=== PATIENT | female | born 1935 | race Caucasian/White ===

== ENCOUNTER 2017-01-08 17:00 | Day surgery (SDC) | payer MEDICARE, OTHER ==
[2017-01-02 09:43] LABS: HEMATOCRIT 39.8 % (36.0-48.0); HEMOGLOBIN 13.2 g/dL (12.0-16.0)
--- NOTE | ~2017-01-08 | OP ---
Record Of Operation [facility] [address] [place]. [address] NAME: LOREN HUITRON : 33 STATUS : REG [facility] PAT#: [id number] AGE: 81 ADM/REG DATE : 01/08/17 MR#: [id number] REPORT SERV DATE: 01/10/17 DICTATED BY: Kathryn LYMAN DATE: 01/10/17 REPORT STATUS : Draft TRANSCRIBED BY: ALECIA DATE: 01/10/17 DATE OF PROCEDURE: 01/08/2017 PREOPERATIVE DIAGNOSES: 1. Basal cell carcinoma of the right inferior nasal sidewall. 2. Basal cell carcinoma of the right lower medial eyelid. 3. Lesion of the right medial forehead, uncertain behavior, rule out atypia. 4. Lesion of the right lateral brow, uncertain behavior, rule out atypia. POSTOPERATIVE DIAGNOSES: 1. Basal cell carcinoma of the right inferior nasal sidewall. 2. Basal cell carcinoma of the right lower medial eyelid. 3. Lesion of the right medial forehead, uncertain behavior, rule out atypia. 4. Lesion of the right lateral brow, uncertain behavior, rule out atypia. PROCEDURE: 1. Excision of right lower and medial eyelid basal cell carcinoma with frozen section. 2. Harvesting of full-thickness skin graft from right lateral upper eyelid. 3. Full-thickness skin graft reconstruction of right lower eyelid defect. 4. Excision of right inferior nasal sidewall basal cell carcinoma with frozen section, and dressing of the wound. 5. Shave excisional biopsy of the right medial forehead lesion. 6. Shaved excisional biopsy of right lateral brow lesion. FINDINGS: Right lower medial eyelid 1.2 cm wide x 6 cm tall excision required, located 14 mm from the lash line; margins cleared by frozen section; right inferior nasal sidewall 1.3 cm wide x 7 mm tall resection, with frozen section showing basal cell carcinoma with margins free; right medial forehead lesion measured 7 mm x 4 mm, slightly raised and rough and crusted; right lateral brow lesion measured 7 mm x 2 mm, rough and raised. INDICATIONS: This 81-year-old female, who has had previous skin cancers on her face, and has a biopsy-proven basal cell carcinoma of both the right lower medial eyelid, and right inferior nasal side wall. We now plan excision and reconstruction of the right lower eyelid with a full-thickness skin graft, and possibly allowing the right inferior nasal sidewall to heal by secondary intention, since she has multiple other scars on her nose and has tight skin on her nose, and a little tissue for flap reconstruction. She also has lesions of her right medial forehead and right lateral brow which have been rough and irritated, and she says they feel just like the other ones before they were diagnosed as cancer. She wants these biopsied and I agree. The pros and cons, alternatives, benefits, risks, limitations, and complications were discussed, including, but not limited to, problems with scarring, ectropion, need for secondary surgery, recurrence of tumor, distortion of the nose or eyelid, imponderables. She understands and wishes to proceed. Proper consent was obtained. DESCRIPTION OF PROCEDURE: She was taken into the operating room and given general oral endotracheal anesthesia in the supine position. The table was turned. The entire face was prepped with diluted Betadine "tea" (Betadine solution mixed with saline). This was to Record Of Operation [address] [address] NAME: LOREN HUITRON : 33 STATUS : REG [facility] PAT#: [id number] AGE: 81 ADM/REG DATE : 01/08/17 MR#: [id number] REPORT SERV DATE: 01/10/17 DICTATED BY: Kathryn LYMAN DATE: 01/10/17 REPORT STATUS : Draft TRANSCRIBED BY: ALECIA DATE: 01/10/17 avoid any irritating solution in her eyes. Sterile drapes were applied. The lesion of the right lower eyelid was marked out and then a 2 mm margin of safety around this was marked. The 12 o'clock, 3 o'clock, 6 o'clock, and 9 o'clock positions were marked as well. The eyelid was injected with 1% Xylocaine with 1:100,000 epinephrine. The nose was marked out as well at the right distal nasal sidewall. This resulted in excision as stated above in the findings. The nose was injected with 0.5% Marcaine with 1:200,000 epinephrine and 1% Xylocaine with 1:100,000 epinephrine. The lesions of her forehead were also marked out for shave excision. They were also injected with 1% Xylocaine with 1:100,000 epinephrine. First, the right lower eyelid tumor was excised with a #15C blade according to the markings. A suture was placed at the 12 o'clock position prior to removing the tumor from the tumor bed. It was then removed and given to the pathologist to orient the specimen, as well as to perform frozen sections. A template was made of the defect and the template was made slightly larger than the defect. This template was made of the foil from suture pack. This template, which was slightly larger than the defect was placed in the right lateral eyelid near the orbital rim. A fusiform ellipse was marked out around this in the same direction of the eyelid wrinkle lines. The area was injected with 1% Xylocaine with 1:100,000 epinephrine. The pathologist returned stating that the margins were free of tumor. The right inferior nasal sidewall tumor was removed with a #15C blade in the mid dermal plane. The specimen was taken to pathology with a suture marking the 12 o'clock position (the suture was placed there before the tumor was removed from the tumor bed). A gauze was placed over the nose and attention turned to the harvesting of the skin graft. The skin graft was harvested according to the markings from the right lateral upper eyelid area. The specimen was quickly defatted and then cut to fit and sutured in place meticulously with interrupted 6-0 fast-absorbing gut suture. It was then treated with antibiotic ointment, a small layer of Telfa, and then a piece of sponge cut from a sterile scrub brush, and this was sutured [id number] with a 6-0 Prolene to add pressure as a bolster to the skin graft. The donor site had excellent hemostasis. After some gentle cautery. The harvest site was then closed with interrupted 6-0 Prolene sutures. The skin graft was then cut to fit and sutured in place into the right lower eyelid with 6-0 interrupted Prolene sutures. The pathologist returned stating that the nasal basal cell was entirely excised with good margins, margins being clear of tumor. The lesions of the right medial forehead and right lateral brow were shaved excised and sent in properly labeled containers for permanent pathology. The base was lightly cauterized. Record Of Operation [facility] [address] [facility] [place] [place]. [address] NAME: LOREN HUITRON : 33 STATUS : REG [facility] PAT#: [id number] AGE: 81 ADM/REG DATE : 01/08/17 MR#: [id number] REPORT SERV DATE: 01/10/17 DICTATED BY: Kathryn LYMAN DATE: 01/10/17 REPORT STATUS : Draft TRANSCRIBED BY: ALECIA DATE: 01/10/17 The skin graft that had been harvested had been kept in saline and was defatted. It was then carefully and meticulously cut to fit and sutured in place with 6-0 interrupted fast- absorbing skin gut suture. This graft was then coated with antibiotic ointment, and then a small layer of Xeroform, followed by a piece of foam from a sterile scrub brush (that had no soap). This foam was sutured in place with an [id number] suture of 6-0 Prolene to avoid having a patch on the eye. The left distal nasal sidewall defect was inspected carefully and hemostasis was obtained with the [employer] needle tip cautery at a low setting. The wound was treated with Neosporin ointment, Telfa, and [id number] suturing with a 6-0 Prolene suture. This secured the dressing. The lesions of the right medial forehead and right lateral brow were shave excised and the base was lightly cauterized as stated above. They were treated then with Mastisol and paper tape. The bolster on the eyelid as well as the dressing on the nose were treated with Mastisol and paper tape. She was awakened, extubated, and taken recovery room in good condition having tolerated the procedure well. She was given antibiotics, antinausea medicine, and pain Medicine. She will recheck in the office in 10 or 11 days. ANNIE/ALECIA Kathryn Lyman M.D. / [id number] CC: Kathryn Lyman M.D.
[~2017-01-08 17:00] MED LIST: CALTRA600D PO; FISH-EPA1000 MG PO; GLUCOSAMINEPO PO; MULTIVITAMI1 PO; NEXIUM40 PO; ZYRTEC ALLGY10 MG PO
== END 2017-01-08 23:59 | disposition home or self-care (01) ==
LOC: SDC 17:00
PROVIDERS: Specialist
PROC: 08RQX7Z Replacement of Right Lower Eyelid with Autologous Tissue Substitute, External Approach (ICD-10-PCS; principal; 2017-01-08 13:15)
PROC: 0WB20ZZ Excision of Face, Open Approach (ICD-10-PCS; 2017-01-08 13:15)
DX: C44.112 Basal cell carcinoma of skin of right eyelid, including canthus (principal); C44.311 Basal cell carcinoma of skin of nose; L01.02 Bockhart's impetigo; K21.9 Gastro-esophageal reflux disease without esophagitis; M19.90 Unspecified osteoarthritis, unspecified site; Z79.2 Long term (current) use of antibiotics; Z79.899 Other long term (current) drug therapy
CPT/HCPCS: 80048; 85014; 85018; 88305; 88331; 93005; J0690; J2370; J2405; J2710; J3010